=== PATIENT | female | born 1955 | race Caucasian/White ===

== ENCOUNTER 2016-05-01 08:29 | Outpatient (RCR) | payer OTHER ==
[~2016-05-01 08:29] MED LIST: OMEP20TA2 PO; PNT40TEC PO; SCR1T1 PO
== END 2016-05-27 13:40 | disposition home or self-care (01) ==
PROVIDERS: ATTEND Family Medicine
DX: M25.552 Pain in left hip (principal)

== ENCOUNTER 2016-08-02 03:01 | Emergency (ER) | payer OTHER ==
[~2016-08-02] VITALS: Ht 157.5 cm; Wt 61.2 kg
[2016-08-02] MEDS ORDERED: ASPIRIN 81 MG CHEW (CHILDREN'S ASA) ONE (03:14)
[2016-08-02] MEDS ORDERED: ASPIRIN 81 MG CHEW (CHILDREN'S ASA) PO ONE (03:30)
[2016-08-02 03:33] LABS: BASOPHILS % (AUTO) 0 % (0-10); EOSINOPHILS # (AUTO) 0.1 10^3/uL (0.0-0.3); EOSINOPHILS % (AUTO) 1 % (0-10); LYMPHOCYTES # (AUTO) 2.9 X 10^3 (1.0-4.0); LYMPHOCYTES % (AUTO) 38 % (12-44); MEAN CORPUSCULAR HEMOGLOBIN 29 PG (25-34); MEAN CORPUSCULAR HGB CONC 34 G/DL (32-36); MEAN CORPUSCULAR VOLUME 87 FL (80-99); MEAN PLATELET VOLUME 9.9 FL (7.4-10.4); MONOCYTES # (AUTO) 0.9 X 10^3 (0.0-1.0); MONOCYTES % (AUTO) 12 % (0-12); NEUTROPHILS # (AUTO) 3.7 X 10^3 (1.8-7.8); NEUTROPHILS % (AUTO) 49 % (42-75); PLATELET COUNT 250 10^3/uL (130-400); RED CELL DISTRIBUTION WIDTH 12.4 % (10.0-14.5); WHITE BLOOD COUNT 7.6 10^3/uL (4.3-11.0)
[2016-08-02 03:42] LABS: PROTHROMBIN TIME PATIENT 12.6 SEC (12.2-14.7)
[2016-08-02 03:53] LABS: ALANINE AMINOTRANSFERASE 18 U/L (0-55); ALBUMIN 4.1 G/DL (3.2-4.5); ANION GAP 11 MMOL/L (5-14); ASPARTATE AMINO TRANSFERASE 27 U/L (5-34); BILIRUBIN,TOTAL 0.4 MG/DL (0.1-1.0); BLOOD UREA NITROGEN 28 MG/DL (7-18); BUN/CREATININE RATIO 33; CALCIUM 9.4 MG/DL (8.5-10.1); CARBON DIOXIDE 23 MMOL/L (21-32); CHLORIDE 108 MMOL/L (98-107); CREATININE SERUM 0.85 MG/DL (0.60-1.30); GFR ESTIMATED > 60; GLUCOSE 99 MG/DL (70-105); MAGNESIUM 2.5 MG/DL (1.8-2.4); POTASSIUM 4.4 MMOL/L (3.6-5.0); SODIUM 142 MMOL/L (135-145); TOTAL PROTEIN 6.9 G/DL (6.4-8.2)
[2016-08-02 04:01] LABS: MYOGLOBIN SERUM 66.3 NG/ML (10.0-92.0)
--- NOTE | 2016-08-02 04:08 | ED Chest Pain ---
General Chief Complaint: Abdominal/GI Problems Stated Complaint: UPPER ABD PAIN,UPPER BACK PAIN Nursing Triage Note: Pt presents to ED with c/o abdominal pain that radiates up into chest, neck , and shoulders that began after she was bending over in the shower at approx 0200. Nursing Sepsis Screen: No Definite Risk Source: patient, old records Exam Limitations: no limitations (ETHAN CISNEROS MD) History of Present Illness Time seen by provider: 03:24 Initial Comments This 60-year-old woman presents to the emergency room with sudden onset of epigastric pain that radiated up through the chest into the neck, jaw, and ears. It occurred while she was bending over. She does have history of hiatal hernia but this is not a typical symptom for her. She has no known history of heart disease but does have a remote history of smoking and a family history of heart disease. She presently has some tenderness in the epigastrium, but the other symptoms have resolved. Onset was at about 02:00. She also had some pain that radiated into the upper back. She denies any shortness of air, nausea , vomiting, or lightheadedness. Review of her chart reveals an exercise stress test from November 2015 showing no ischemia. However, the study was compromised by significant baseline artifact at peak exercise. (ETHAN CISNEROS MD) Allergies and Home Medications Allergies Coded Allergies: No Known Drug Allergies (Unverified , 03/12/12) Home Medications Pantoprazole Sod 40 Mg Tab, 40 MG PO DAILY, (Reported) Sucralfate 1 Gm Tab, 1 GM PO ACHS for 14 Days, (Reported) Review of Systems Constitutional: no symptoms reported EENTM: No Symptoms Reported Respiratory: No Symptoms Reported Cardiovascular: See HPI Gastrointestinal: See HPI Genitourinary: No Symptoms Reported Musculoskeletal: no symptoms reported Skin: no symptoms reported Psychiatric/Neurological: No Symptoms Reported Endocrine: No Symptoms Reported (ETHAN CISNEROS MD) Past Qpzwjny-Kvcpbk-Rbacxu Hx Patient Social History Alcohol Use: Denies Use Recreational Drug Use: No Smoking Status: Never a Smoker 2nd Hand Smoke Exposure: No Recent Foreign Travel: No Contact w/Someone Who Travel: No Recent Infectious Disease Expo: No Recent Hopitalizations: No (ETHAN CISNEROS MD) Seasonal Allergies Seasonal Allergies: No (ETHAN CISNEROS MD) Surgeries HX Surgeries: No (ETHAN CISNEROS MD) Respiratory Hx Respiratory Disorders: No (ETHAN CISNEROS MD) Cardiovascular Hx Cardiac Disorders: No (ETHAN CISNEROS MD) Neurological Hx Neurological Disorders: No (ETHAN CISNEROS MD) Reproductive System : No (ETHAN CISNEROS MD) Genitourinary Hx Genitourinary Disorders: No (ETHAN CISNEROS MD) Gastrointestinal Hx Gastrointestinal Disorders: Yes Gastrointestinal Disorders: Gastroesophageal Reflux, Hiatal Hernia (ETHAN CISNEROS MD) Musculoskeletal Hx Musculoskeletal Disorders: No (ETHAN CISNEROS MD) Endocrine Hx Endocrine Disorders: No (ETHAN CISNEROS MD) HEENT HX ENT Disorders: No (ETHAN CISNEROS MD) Cancer Hx Cancer: No (ETHAN CISNEROS MD) Psychosocial Hx Psychiatric Problems: No (ETHAN CISNEROS MD) Integumentary HX Skin/Integumentary Disorder: No (ETHAN CISNEROS MD) Blood Transfusions Hx Blood Disorders: No Adverse Reaction to a Blood Tr: No (ETHAN CISNEROS MD) Family Medical History Significant Family History: Heart Disease, Diabetes, Stroke, Vascular Disease ( May Thurner syndrome) (ETHAN CISNEROS MD) Physical Exam Vital Signs Vital Sign - Last 12Hours 08/02/16 03:10 Temp 97.8 Pulse 79 Resp 18 B/P (MAP) 139/90 Pulse Ox 99 O2 Delivery Room Air (TITUS NEVAREZ MD) Vital Signs Capillary Refill : Less Than 3 Seconds (ETHAN CISNEROS MD) General Appearance: No Apparent Distress, WD/WN HEENT: PERRL/EOMI, Normal ENT Inspection Neck: Normal Inspection Respiratory: Chest Non Tender, Lungs Clear, Normal Breath Sounds, No Accessory Muscle Use, No Respiratory Distress Cardiovascular: Regular Rate, Rhythm, No Edema, No Murmur, Normal Peripheral Pulses Gastrointestinal: Normal Bowel Sounds, Soft, Tenderness (mild in the epigastrium) Extremity: Normal Inspection, No Pedal Edema Neurologic/Psychiatric: Alert, Oriented x3, No Motor/Sensory Deficits, Normal Mood/Affect, annealing operator II-XII Norm as Tested Skin: Normal Color, Warm/Dry (ETHAN CISNEROS MD) Progress/Results/Core Measures Results/Orders Lab Results Laboratory Tests Test 08/02/16 03:25 08/02/16 05:55 Range/Units White Blood Count 7.6 4.3-11.0 10^3/uL Red Blood Count 4.60 4.35-5.85 10^6/uL Hemoglobin 13.4 11.5-16.0 G/DL Hematocrit 40 35-52 % Mean Corpuscular Volume 87 80-99 FL Mean Corpuscular Hemoglobin 29 25-34 PG Mean Corpuscular Hemoglobin Concent 34 32-36 G/DL Red Cell Distribution Width 12.4 10.0-14.5 % Platelet Count 250 130-400 10^3/uL Mean Platelet Volume 9.9 7.4-10.4 FL Neutrophils (%) (Auto) 49 42-75 % Lymphocytes (%) (Auto) 38 12-44 % Monocytes (%) (Auto) 12 0-12 % Eosinophils (%) (Auto) 1 0-10 % Basophils (%) (Auto) 0 0-10 % Neutrophils # (Auto) 3.7 1.8-7.8 X 10^3 Lymphocytes # (Auto) 2.9 1.0-4.0 X 10^3 Monocytes # (Auto) 0.9 0.0-1.0 X 10^3 Eosinophils # (Auto) 0.1 0.0-0.3 10^3/uL Basophils # (Auto) 0.0 0.0-0.1 10^3/uL Prothrombin Time 12.6 12.2-14.7 SEC INR Comment 1.0 0.8-1.4 Activated Partial Thromboplast Time 26 24-35 SEC Sodium Level 142 135-145 MMOL/L Potassium Level 4.4 3.6-5.0 MMOL/L Chloride Level 108 H 98-107 MMOL/L Carbon Dioxide Level 23 21-32 MMOL/L Anion Gap 11 5-14 MMOL/L Blood Urea Nitrogen 28 H 7-18 MG/DL Creatinine 0.85 0.60-1.30 MG/DL Estimat Glomerular Filtration Rate > 60 BUN/Creatinine Ratio 33 Glucose Level 99 70-105 MG/DL Calcium Level 9.4 8.5-10.1 MG/DL Magnesium Level 2.5 H 1.8-2.4 MG/DL Total Bilirubin 0.4 0.1-1.0 MG/DL Aspartate Amino Transf (AST/SGOT) 27 5-34 U/L Alanine Aminotransferase (ALT/SGPT) 18 0-55 U/L Alkaline Phosphatase 62 40-136 U/L Myoglobin 66.3 10.0-92.0 NG/ML Troponin I < 0.30 < 0.30 <0.30 NG/ML Total Protein 6.9 6.4-8.2 G/DL Albumin 4.1 3.2-4.5 G/DL Lipase 30 8-78 U/L (TITUS NEVAREZ MD) Medications Given in ED Current Medications Medications Dose Ordered Sig/Emily Route Start Time Stop Time Status Last Admin Dose Admin Aspirin 243 mg ONCE ONCE PO 08/02/16 03:30 08/02/16 03:31 DC 08/02/16 03:15 243 MG (TITUS NEVAREZ MD) Vital Signs/I&O Vital Sign - Last 12Hours 08/02/16 08/02/16 03:10 03:12 Temp 97.8 Pulse 79 Resp 18 B/P (MAP) 139/90 Pulse Ox 99 98 O2 Delivery Room Air Room Air (TITUS NEVAREZ MD) Blood Pressure Mean: 106 Progress Note : Progress Note 0600: Assumed care of patient from Dr. Bach pending labs. 0650: Labs repeated and showed no acute findings. Patient without chest pain symptoms currently. I did discuss findings, concerns and plan with patient and family. She will follow-up with Dr. Michaels on Thursday for recheck and further evaluation as well as potentially repeat cardiac evaluation with stress test as indicated. She will also restart her medicines for her hiatal hernia and reflux. Discharged home with return precautions. Patient and family verbalize understanding instructions and agreement with plan. (TITUS NEVAREZ MD) ECG Initial ECG Impression Date: August 02, 2016 Initial ECG Impression Time: 03:24 Initial ECG Rate: 73 Initial ECG Rhythm: Normal Sinus Initial ECG Intervals: Normal Initial ECG Impression: Normal Comment Normal sinus rhythm with no ST elevation or depression. No abnormal intervals or axis deviation. Similar to EKG from 2016. (ETHAN CISNEROS MD) Diagnostic Imaging Diagonstic Imaging: Xray Plain Films/CT/US/NM/MRI: chest Comments Chest x-ray viewed by me and compared with prior. Report not yet available. No acute abnormalities appreciated. (ETHAN CISNEROS MD) Departure Impression Impression: Primary Impression: Atypical chest pain Additional Impression: Epigastric abdominal tenderness Qualified Codes: R10.816 - Epigastric abdominal tenderness Disposition: HOME, SELF-CARE Condition: Stable Departure-Patient Inst. Decision time for Depature: 06:53 (TITUS NEVAREZ MD) Referrals: JEANNA MICHAELS DO (PCP) Primary Care Physician Patient Instructions: Chest Pain (DC), Hiatal Hernia (DC) Add. Discharge Instructions: All discharge instructions reviewed with patient and/or family. Voiced understanding. Restart her medicines that he use for reflux. Follow-up with Dr. Michaels on Thursday for recheck and further evaluation including possible referral for stress test as indicated. Return for worse pain, fever, vomiting, weakness, breathing problems, sweating or other concerns as needed. Continue other home medications as previously prescribed. ETHAN CISNEROS MD August 02, 2016 04:08 TITUS NEVAREZ MD August 02, 2016 06:55
[2016-08-02 07:01] VITALS: BP 105/68
--- NOTE | 2016-08-02 08:17 | Diagnostic Imaging Report ---
INDICATION: Epigastric pain radiating to the chest. EXAMINATION: Chest, 08/02/2016. COMPARISON: 12/01/2015. FINDINGS: The cardiomediastinal silhouette is unremarkable. The pulmonary vasculature is within normal limits. The lungs and pleural spaces are clear. IMPRESSION: No evidence of an acute cardiopulmonary process. Dictated by: Dictated on workstation # [id number]
== END 2016-08-02 07:04 | disposition home or self-care (01) ==
LOC: EDUNIT# 03:01 → ER 03:04
DX: R07.89 Other chest pain (principal); R10.13 Epigastric pain; K44.9 Diaphragmatic hernia without obstruction or gangrene; Z87.891 Personal history of nicotine dependence
CPT/HCPCS: 36415; 71010; 80053; 83690; 83735; 83874; 84484; 85025; 85610; 85730; 93005; 93041

== ENCOUNTER → 2016-09-10 | Outpatient (CLI) | payer OTHER ==
--- NOTE | 2016-09-10 11:16 | Diagnostic Imaging Report ---
PROCEDURE: US abdomen complete. TECHNIQUE: Multiple real-time grayscale images were obtained over the abdomen in various projections. INDICATION: Abdominal pain. FINDINGS: The pancreas visualized portions appear unremarkable. The abdominal aorta is normal in caliber. The liver demonstrates no focal lesion. There is hepatopetal flow in the portal vein. The CBD is 4 mm in caliber. The gallbladder demonstrates no stones or wall thickening. There is no pericholecystic fluid. There is a 4-mm hyperechoic focus along the wall, nonmobile, is presumably a polyp. Sonographic Bush sign is reportedly negative. The spleen is 8.2 cm in length. The left kidney is 10.0 cm in length, and the right kidney is 10.8 cm in length. There is no hydronephrosis. The lower pole of the left kidney is partially obscured by bowel gas. There is an unremarkable appearance of the visualized portions of the IVC. No fluid collection is seen. IMPRESSION: A 4-mm echogenic focus in the gallbladder is probably a polyp. No stones or evidence of cholecystitis. Dictated by: Dictated on workstation # [id number]
== END ==
LOC: RAD 07:38
PROVIDERS: ATTEND Family Medicine
DX: R10.84 Generalized abdominal pain (principal)
CPT/HCPCS: 76700

== ENCOUNTER 2017-05-06 10:27 | Emergency (ER) | payer OTHER ==
[~2017-05-06] VITALS: Ht 157.5 cm; Wt 61.7 kg
[2017-05-06] MEDS ORDERED: NS IV 500 ML 500 ML IV ONE (10:39)
[2017-05-06] MEDS ORDERED: ASPIRIN 81 MG CHEW (CHILDREN'S ASA) PO ONE (10:45)
--- NOTE | 2017-05-06 10:47 | ED Chest Pain ---
General Stated Complaint: DIZZINESS,CP,DIAPHRAM PAIN,BACK PAIN Source: patient, other (coworker) Exam Limitations: no limitations History of Present Illness Date Seen by Provider: May 06, 2017 Time Seen by Provider: 10:38 Initial Comments Patient presents to ER by private conveyance with a coworker and chief complaint that she was at work and about 10:00, 30 minutes prior to arrival she began to experience a sharp 6 out of 10 substernal chest pain with some nerve pain radiation in her left arm. She had no nausea, chills, shortness of breath, sweats at the time. She has no prior history of coronary disease. Last year she had some odd chest pains that resulted and a stress echo done at [facility] that was normal. She quit smoking about 35 years ago. She does not drink alcohol or use recreational drugs. She does not have diabetes, hypothyroidism, high cholesterol or take any medications of any sort. At the time she was having the pain some nurses at her work insisted she take a 325 mg aspirin and come to the ER. The chest pain lasted approximately 5 minutes and resolve spontaneously. Allergies and Home Medications Allergies Coded Allergies: No Known Drug Allergies (Unverified , 03/12/12) Home Medications No Active Prescriptions or Reported Meds Review of Systems Constitutional: No chills, No diaphoresis, No fever EENTM: No Blurred Vision, No Double Vision Respiratory: Denies Cough, Denies Shortness of Air Cardiovascular: See HPI, Chest Pain, Denies Edema, Denies Irregular Heart Rate , Denies Lightheadedness, Denies Palpitations, Denies Syncope Gastrointestinal: Denies Abdomen Distended, Denies Abdominal Pain, Denies Constipated, Denies Diarrhea, Denies Nausea Genitourinary: Denies Burning, Denies Discharge Musculoskeletal: No back pain, No joint pain Skin: No pruritus, No rash Past Csjnbmp-Jfncra-Yqcmql Hx Patient Social History Alcohol Use: Denies Use Recreational Drug Use: No Smoking Status: Former Smoker Type Used: Cigarettes (crit 35 years ago) 2nd Hand Smoke Exposure: No Recent Foreign Travel: No Contact w/Someone Who Travel: No Recent Hopitalizations: No Seasonal Allergies Seasonal Allergies: No Gastrointestinal Gastrointestinal Disorders: Gastroesophageal Reflux, Hiatal Hernia Blood Transfusions Adverse Reaction to a Blood Tr: No Family Medical History Significant Family History: Heart Disease, Diabetes, Stroke, Vascular Disease Physical Exam Vital Signs Vital Signs - First Documented 05/06/17 10:27 Temp 98.0 Pulse 78 Resp 18 B/P (MAP) 157/88 (111) Pulse Ox 99 Capillary Refill : General Appearance: No Apparent Distress, WD/WN HEENT: PERRL/EOMI, Normal ENT Inspection, Pharynx Normal Neck: Full Range of Motion, Non Tender, Supple Respiratory: Chest Non Tender, Lungs Clear, Normal Breath Sounds, No Accessory Muscle Use, No Respiratory Distress Cardiovascular: Regular Rate, Rhythm, No JVD, Normal Peripheral Pulses Gastrointestinal: Normal Bowel Sounds, Non Tender, Soft Extremity: Normal Capillary Refill, No Pedal Edema Neurologic/Psychiatric: Alert, Oriented x3 Skin: Normal Color, Warm/Dry Progress/Results/Core Measures Results/Orders Lab Results Laboratory Tests Test 05/06/17 10:40 05/06/17 12:40 Range/Units White Blood Count 6.8 4.3-11.0 10^3/uL Red Blood Count 4.55 4.35-5.85 10^6/uL Hemoglobin 13.5 11.5-16.0 G/DL Hematocrit 39 35-52 % Mean Corpuscular Volume 85 80-99 FL Mean Corpuscular Hemoglobin 30 25-34 PG Mean Corpuscular Hemoglobin Concent 35 32-36 G/DL Red Cell Distribution Width 12.3 10.0-14.5 % Platelet Count 255 130-400 10^3/uL Mean Platelet Volume 9.7 7.4-10.4 FL Neutrophils (%) (Auto) 50 42-75 % Lymphocytes (%) (Auto) 40 12-44 % Monocytes (%) (Auto) 9 0-12 % Eosinophils (%) (Auto) 1 0-10 % Basophils (%) (Auto) 0 0-10 % Neutrophils # (Auto) 3.4 1.8-7.8 X 10^3 Lymphocytes # (Auto) 2.7 1.0-4.0 X 10^3 Monocytes # (Auto) 0.6 0.0-1.0 X 10^3 Eosinophils # (Auto) 0.1 0.0-0.3 10^3/uL Basophils # (Auto) 0.0 0.0-0.1 10^3/uL Prothrombin Time 12.6 12.2-14.7 SEC INR Comment 0.9 0.8-1.4 Activated Partial Thromboplast Time 26 24-35 SEC Sodium Level 140 135-145 MMOL/L Potassium Level 3.8 3.6-5.0 MMOL/L Chloride Level 107 98-107 MMOL/L Carbon Dioxide Level 22 21-32 MMOL/L Anion Gap 11 5-14 MMOL/L Blood Urea Nitrogen 16 7-18 MG/DL Creatinine 0.86 0.60-1.30 MG/DL Estimat Glomerular Filtration Rate > 60 BUN/Creatinine Ratio 19 Glucose Level 113 H 70-105 MG/DL Calcium Level 8.7 8.5-10.1 MG/DL Magnesium Level 1.8 1.8-2.4 MG/DL Total Bilirubin 0.5 0.1-1.0 MG/DL Aspartate Amino Transf (AST/SGOT) 18 5-34 U/L Alanine Aminotransferase (ALT/SGPT) 16 0-55 U/L Alkaline Phosphatase 55 40-136 U/L Myoglobin 34.4 10.0-92.0 NG/ML Troponin I < 0.30 < 0.30 <0.30 NG/ML Total Protein 6.7 6.4-8.2 GM/DL Albumin 4.0 3.2-4.5 GM/DL Lipase 31 8-78 U/L My Orders Orders - ARIEL,KANE J Ekg Tracing (05/06/17 10:30) Cbc With Automated Diff (05/06/17 10:39) Magnesium (05/06/17 10:39) Cardiac Profile 1 (05/06/17 10:39) Comprehensive Metabolic Panel (05/06/17 10:39) Myoglobin Serum (05/06/17 10:39) Protime With Inr (05/06/17 10:39) Partial Thromboplastin Time (05/06/17 10:39) O2 (05/06/17 10:39) Monitor-Rhythm Ecg Trace Only (05/06/17 10:39) Lipid Panel (05/07/17 06:00) Aspirin Chewable Tablet (Baby Aspirin Ch (05/06/17 10:45) Saline Lock/Iv-Start (05/06/17 10:39) Lipase (05/06/17 10:39) Chest Pa/Lat (2 View) (05/06/17 10:39) Ns Iv 500 Ml (Sodium Chloride 0.9%) (05/06/17 10:39) Ekg Tracing (05/06/17 12:30) Troponin I (05/06/17 12:30) Lidocaine 2% Viscous 15 Ml (Xylocaine Vi (05/06/17 13:00) Famotidine Tablet (Pepcid Tablet) (05/06/17 12:48) Antacid Suspension (Mylanta Suspension (05/06/17 13:00) Medications Given in ED Current Medications Medications Dose Ordered Sig/Emily Route Start Time Stop Time Status Last Admin Dose Admin Al Hydrox/Mg Hydrox/Simethicone 30 ml ONCE ONCE PO 05/06/17 13:00 05/06/17 13:01 DC 05/06/17 12:58 30 ML Aspirin 81 mg ONCE ONCE PO 05/06/17 10:45 05/06/17 10:46 DC 05/06/17 11:11 81 MG Lidocaine HCl 15 ml ONCE ONCE PO 05/06/17 13:00 05/06/17 13:01 DC 05/06/17 12:58 15 ML Sodium Chloride 500 ml @ 0 mls/hr Q0M ONCE IV 05/06/17 10:39 05/06/17 10:41 DC 05/06/17 11:12 1,000 MLS/HR Vital Signs/I&O Vital Sign - Last 12Hours 05/06/17 10:27 Temp 98.0 Pulse 78 Resp 18 B/P (MAP) 157/88 (111) Pulse Ox 99 Progress Note : Time: 11:46 Progress Note ED ACS score is 13 points which is low risk and recommends a two-hour troponin rule out. ECG Initial ECG Impression Date: May 06, 2017 Initial ECG Impression Time: 10:34 Initial ECG Rate: 77 Initial ECG Rhythm: Normal Sinus Initial ECG Intervals: Normal Initial ECG Impression: Normal Initial ECG Comparisson: Unchanged Comment No T-wave elevation or depression. EKG : EKG Time: 12:32 Rate: 71 Rhythm: Normal Sinus Intervals: Normal ECG Comparisson: Unchanged ECG Impression: Normal, Nonspecific Changes Comment Unchanged without significant ST elevation or depression. Diagnostic Imaging Diagonstic Imaging: Xray Plain Films/CT/US/NM/MRI: chest (2v) Comments No acute cardiopulmonary processes noted. [facility] [place], [place] NAME: JACEY PORRASTHOMAS Cifuentes [facility] REC#: [id number] PT STATUS: REG ER : 1955 PHYSICIAN: KANE GEORGE MD ADMIT DATE: 05/06/17/ER Draft Date of Exam:05/06/17 CHEST PA/LAT (2 VIEW) INDICATION: Chest pain and dizziness. Comparison with 08/02/2016. FINDINGS: PA and lateral chest show the lungs to be well-aerated. There are no infiltrates. Heart is not enlarged. There is no hilar adenopathy. No pulmonary edema. No pneumothorax or pleural effusion. No bony abnormalities. IMPRESSION: Normal PA and lateral chest. Dictated on workstation # [id number] Dict: 05/06/17 1124 Trans: 05/06/17 1127 [facility] [id number] Interpreted by: TROY DUBOIS MD Electronically signed by: Reviewed: Reviewed by Me Consults Consults : Consulting Physician: Sincere RIDDLE MD Consults Notes Discussed case lab EKG and imaging with Dr. Mckeon. He agrees with a delta T at 2 hours and follow-up in the clinic. Departure Impression Impression: Primary Impression: Chest pain Qualified Codes: R07.9 - Chest pain, unspecified Disposition: 01 HOME, SELF-CARE Condition: Stable Departure-Patient Inst. Decision time for Depature: 13:45 Referrals: JEANNA MCKEON DO (PCP/Family) Primary Care Physician Patient Instructions: Chest Pain (DC) Add. Discharge Instructions: Your chest pain today does not seem to be caused by an acute myocardial infarction or heart attack. However it is still recommended that you get your heart evaluated for possible early heart disease with the upholstery trimmer by calling Dr. Riddle at his office today at [phone] and requests an appointment in the next 2-3 days. If you begin to have more chest pain please return to the ER immediately. You may also follow-up with your primary care physician for evaluation and management of other noncardiac possible causes of your chest pain. It would not be unwise to start taking an 81mg aspirin daily for primary prevention of heart disease. Scripts No Active Prescriptions or Reported Meds Work/School Note: Work Release Form Date Seen in the Emergency Department: May 06, 2017 Return to Work: May 07, 2017 Restrictions: No Restrictions Copy Copies To 1: JEANNA MCKEON DO Copies To 2: Sincere RIDDLE MD, TITUS J May 06, 2017 10:46
[2017-05-06 10:52] LABS: BASOPHILS % (AUTO) 0 % (0-10); EOSINOPHILS # (AUTO) 0.1 10^3/uL (0.0-0.3); EOSINOPHILS % (AUTO) 1 % (0-10); HEMATOCRIT 39 % (35-52); HEMOGLOBIN 13.5 G/DL (11.5-16.0); LYMPHOCYTES # (AUTO) 2.7 X 10^3 (1.0-4.0); LYMPHOCYTES % (AUTO) 40 % (12-44); MEAN CORPUSCULAR HEMOGLOBIN 30 PG (25-34); MEAN CORPUSCULAR HGB CONC 35 G/DL (32-36); MEAN CORPUSCULAR VOLUME 85 FL (80-99); MEAN PLATELET VOLUME 9.7 FL (7.4-10.4); MONOCYTES # (AUTO) 0.6 X 10^3 (0.0-1.0); MONOCYTES % (AUTO) 9 % (0-12); NEUTROPHILS # (AUTO) 3.4 X 10^3 (1.8-7.8); NEUTROPHILS % (AUTO) 50 % (42-75); PLATELET COUNT 255 10^3/uL (130-400); RED BLOOD COUNT 4.55 10^6/uL (4.35-5.85); RED CELL DISTRIBUTION WIDTH 12.3 % (10.0-14.5); WHITE BLOOD COUNT 6.8 10^3/uL (4.3-11.0)
[2017-05-06 11:12] LABS: INR 0.9 (0.8-1.4); PROTHROMBIN TIME PATIENT 12.6 SEC (12.2-14.7)
[2017-05-06 11:13] LABS: ALANINE AMINOTRANSFERASE 16 U/L (0-55); ALKALINE PHOSPHATASE 55 U/L (40-136); BILIRUBIN,TOTAL 0.5 MG/DL (0.1-1.0); BUN/CREATININE RATIO 19; CALCIUM 8.7 MG/DL (8.5-10.1); CARBON DIOXIDE 22 MMOL/L (21-32); CHLORIDE 107 MMOL/L (98-107); CREATININE SERUM 0.86 MG/DL (0.60-1.30); GFR ESTIMATED > 60; GLUCOSE 113 MG/DL (70-105); LIPASE 31 U/L (8-78); MAGNESIUM 1.8 MG/DL (1.8-2.4); POTASSIUM 3.8 MMOL/L (3.6-5.0); SODIUM 140 MMOL/L (135-145); TOTAL PROTEIN 6.7 GM/DL (6.4-8.2)
[2017-05-06 11:21] LABS: MYOGLOBIN SERUM 34.4 NG/ML (10.0-92.0)
--- NOTE | 2017-05-06 11:28 | Diagnostic Imaging Report ---
INDICATION: Chest pain and dizziness. Comparison with 08/02/2016. FINDINGS: PA and lateral chest show the lungs to be well-aerated. There are no infiltrates. Heart is not enlarged. There is no hilar adenopathy. No pulmonary edema. No pneumothorax or pleural effusion. No bony abnormalities. IMPRESSION: Normal PA and lateral chest. Dictated by: Dictated on workstation # [id number]
--- OUTSIDE RECORDS SUMMARY | 2017-05-06 11:55 | XMS REPORT | Continuity of Care Document ---
Author Author [facility] Organization [facility] Address Unknown Phone Unavailable Allergies Active Description Code Type Severity Reaction Onset Reported/Identified Relationship to Patient Clinical Status Yes No Known Drug Allergies [id number] Drug Allergy Unknown N/A 03/12/2012 Medications There is no data. Problems Date Dx Coded Attending Type Code Diagnosis Diagnosed By 03/12/2012 Ot 455.0 INT HEMORRHOID W/O COMPL 03/12/2012 Ot 455.3 EXT HEMORRHOID W/O COMPL 03/12/2012 Ot 530.11 REFLUX ESOPHAGITIS 03/12/2012 Ot 535.50 UNSP GASTRITIS GASTRODUODENITIS W/O ME 03/12/2012 Ot 553.3 DIAPHRAGMATIC HERNIA 03/12/2012 Ot 562.10 DIVERTICULOSIS COLON (W/O MENT OF HEMORR 03/12/2012 Ot V76.51 SCREEN MAL NEOP-COLON 11/23/2014 Ot V72.84 12/08/2014 TITUS FAN DC Ot 721.0 12/08/2014 TITUS FAN DC Ot 721.2 12/08/2014 TITUS FAN DC Ot 721.3 12/08/2014 TITUS FAN DC Ot 737.30 01/03/2015 TITUS FAN DC Ot 721.0 01/03/2015 TITUS FAN DC Ot 721.2 01/03/2015 TITUS FAN DC Ot 721.3 01/03/2015 TITUS FAN DC Ot 737.30 01/03/2015 Ot V72.84 01/03/2015 TITUS FAN DC Ot 721.0 01/03/2015 TITUS FAN DC Ot 721.2 01/03/2015 TITUS FAN DC Ot 721.3 01/03/2015 TITUS FAN DC Ot 737.30 04/30/2015 TITUS FAN DC Ot 721.0 04/30/2015 MENG DC, TITUS J Ot 721.2 04/30/2015 MENG DC, TITUS J Ot 721.3 04/30/2015 MENG DC, TITUS J Ot 737.30 05/02/2015 MENG DC, TITUS J Ot 721.0 05/02/2015 MENG DC, TITUS J Ot 721.2 05/02/2015 MENG DC, TITUS J Ot 721.3 05/02/2015 MENG DC, TITUS J Ot 737.30 05/29/2015 Ot V72.84 05/29/2015 MENG DC, TITUS J Ot 721.0 05/29/2015 MENG DC, TITUS J Ot 721.2 05/29/2015 MENG DC, TITUS J Ot 721.3 05/29/2015 MENG DC, TITUS J Ot 737.30 06/12/2015 MENG DC, TITUS J Ot 721.0 06/12/2015 MENG DC, TITUS J Ot 721.2 06/12/2015 MENG DC, TITUS J Ot 721.3 06/12/2015 MENG DC, TITUS J Ot 737.30 12/11/2015 Ot V72.84 EXAM PRE- OPERATIVE NOS 12/11/2015 MENG DC, TITUS J Ot 721.0 CERVICAL SPONDYLOSIS 12/11/2015 MENG DC, TITUS J Ot 721.2 THORACIC SPONDYLOSIS 12/11/2015 MENG DC, TITUS J Ot 721.3 LUMBOSACRAL SPONDYLOSIS 12/11/2015 MENG DC, TITUS J Ot 737.30 IDIOPATHIC SCOLIOSIS 12/12/2015 HARLEY PIERCE SKIVER BOX TOE Ot R06.09 OTHER FORMS OF DYSPNEA 12/12/2015 HARLEY PIERCE SKIVER BOX TOE Ot R07.9 CHEST PAIN, UNSPECIFIED 12/12/2015 HARLEY PIERCE SKIVER BOX TOE Ot R55 SYNCOPE AND COLLAPSE 12/26/2015 HARLEY PIERCE SKIVER BOX TOE Ot R06.09 OTHER FORMS OF DYSPNEA 12/26/2015 HARLEY PIERCE SKIVER BOX TOE Ot R07.9 CHEST PAIN, UNSPECIFIED 12/26/2015 HARLEY PIERCE SKIVER BOX TOE Ot R55 SYNCOPE AND COLLAPSE 01/16/2016 HARLEY PIERCE SKIVER BOX TOE Ot R06.00 DYSPNEA, UNSPECIFIED 01/16/2016 HARLEY PIERCE SKIVER BOX TOE Ot R07.9 CHEST PAIN, UNSPECIFIED 01/22/2016 HARLEY PIERCE SKIVER BOX TOE Ot R06.00 DYSPNEA, UNSPECIFIED 01/22/2016 HARLEY PIERCE SKIVER BOX TOE Ot R07.9 CHEST PAIN, UNSPECIFIED 01/22/2016 Ot V72.84 EXAM PRE- OPERATIVE NOS 01/22/2016 MENG DC, TITUS J Ot 721.0 CERVICAL SPONDYLOSIS 01/22/2016 MENG DC, TITUS J Ot 721.2 THORACIC SPONDYLOSIS 01/22/2016 MENG DC, TITUS J Ot 721.3 LUMBOSACRAL SPONDYLOSIS 01/22/2016 MENG DC, TITUS J Ot 737.30 IDIOPATHIC SCOLIOSIS 01/22/2016 HARLEY PIERCE SKIVER BOX TOE Ot R06.09 OTHER FORMS OF DYSPNEA 01/22/2016 HARLEY PIERCE SKIVER BOX TOE Ot R07.9 CHEST PAIN, UNSPECIFIED 01/22/2016 HARLEY PIERCE SKIVER BOX TOE Ot R55 SYNCOPE AND COLLAPSE 01/22/2016 HARLEY PIERCE SKIVER BOX TOE Ot R06.00 DYSPNEA, UNSPECIFIED 01/22/2016 HARLEY PIERCE SKIVER BOX TOE Ot R07.9 CHEST PAIN, UNSPECIFIED 01/22/2016 Ot V72.84 EXAM PRE- OPERATIVE NOS 01/22/2016 MENG DC, TITUS J Ot 721.0 CERVICAL SPONDYLOSIS 01/22/2016 MENG DC, TITUS J Ot 721.2 THORACIC SPONDYLOSIS 01/22/2016 MENG DC, TITUS J Ot 721.3 LUMBOSACRAL SPONDYLOSIS 01/22/2016 MENG DC, TITUS J Ot 737.30 IDIOPATHIC SCOLIOSIS 01/22/2016 HARLEY PIERCE SKIVER BOX TOE Ot R06.09 OTHER FORMS OF DYSPNEA 01/22/2016 HARLEY PIERCE SKIVER BOX TOE Ot R07.9 CHEST PAIN, UNSPECIFIED 01/22/2016 HARLEY PIERCE SKIVER BOX TOE Ot R55 SYNCOPE AND COLLAPSE 01/22/2016 HARLEY PIERCE SKIVER BOX TOE Ot R06.00 DYSPNEA, UNSPECIFIED 01/22/2016 HARLEY PIERCE SKIVER BOX TOE Ot R07.9 CHEST PAIN, UNSPECIFIED 01/31/2016 Ot V72.84 EXAM PRE- OPERATIVE NOS 01/31/2016 MENG TITUS GALINDO Ot 721.0 CERVICAL SPONDYLOSIS 01/31/2016 CALIENTE TITUS GALINDO Ot 721.2 THORACIC SPONDYLOSIS 01/31/2016 CALIENTE TITUS GALINDO Ot 721.3 LUMBOSACRAL SPONDYLOSIS 01/31/2016 CALIENTE TITUS GALINDO Ot 737.30 IDIOPATHIC SCOLIOSIS 01/31/2016 HARLEY PIERCE SKIVER BOX TOE Ot R06.09 OTHER FORMS OF DYSPNEA 01/31/2016 HARLEY PIERCE SKIVER BOX TOE Ot R07.9 CHEST PAIN, UNSPECIFIED 01/31/2016 HARLEY PIERCE SKIVER BOX TOE Ot R55 SYNCOPE AND COLLAPSE 01/31/2016 HARLEY PIERCE APRN Ot R06.00 DYSPNEA, UNSPECIFIED 01/31/2016 HARLEY PIERCE APRN Ot R07.9 CHEST PAIN, UNSPECIFIED 02/01/2016 ORENDER DO, JEANNA S Ot R22.42 LOCALIZED SWELLING, MASS AND LUMP, LEFT 02/04/2016 ORENDER DO, JEANNA S Ot R22.42 LOCALIZED SWELLING, MASS AND LUMP, LEFT 02/13/2016 Ot V72.84 EXAM PRE- OPERATIVE NOS 02/13/2016 CALIENTE TITUS GALINDO Ot 721.0 CERVICAL SPONDYLOSIS 02/13/2016 TITUS AFN DC Ot 721.2 THORACIC SPONDYLOSIS 02/13/2016 CALIENTE TITUS GALINDO Ot 721.3 LUMBOSACRAL SPONDYLOSIS 02/13/2016 CALIENTE TITUS GALINDO Ot 737.30 IDIOPATHIC SCOLIOSIS 02/13/2016 HARLEY PIERCE SKIVER BOX TOE Ot R06.09 OTHER FORMS OF DYSPNEA 02/13/2016 HARLEY PIERCE SKIVER BOX TOE Ot R07.9 CHEST PAIN, UNSPECIFIED 02/13/2016 HARLEY PIERCE SKIVER BOX TOE Ot R55 SYNCOPE AND COLLAPSE 02/13/2016 HARLEY PIERCE SKIVER BOX TOE Ot R06.00 DYSPNEA, UNSPECIFIED 02/13/2016 HARLEY PIERCE SKIVER BOX TOE Ot R07.9 CHEST PAIN, UNSPECIFIED 02/13/2016 ORENDER DO, JEANNA S Ot R22.42 LOCALIZED SWELLING, MASS AND LUMP, LEFT 02/13/2016 HARLEY PIERCE SKIVER BOX TOE Ot R06.00 DYSPNEA, UNSPECIFIED 02/13/2016 HARLEY PIERCE Kelly MATTHEWN Ot R07.9 CHEST PAIN, UNSPECIFIED 02/13/2016 Ot V72.84 EXAM PRE- OPERATIVE NOS 02/13/2016 MENG GALINDO, TITUS Cifuentes Ot 721.0 CERVICAL SPONDYLOSIS 02/13/2016 TITUS FAN DC Ot 721.2 THORACIC SPONDYLOSIS 02/13/2016 TITUS FAN DC Ot 721.3 LUMBOSACRAL SPONDYLOSIS 02/13/2016 TITUS FAN DC Ot 737.30 IDIOPATHIC SCOLIOSIS 02/13/2016 HARLEY PIERCE Kelly MATTHEWN Ot R06.09 OTHER FORMS OF DYSPNEA 02/13/2016 HARLEY PIERCE Kelly SKIVER BOX TOE Ot R07.9 CHEST PAIN, UNSPECIFIED 02/13/2016 SANDRA PIERCEIngrid Mendoza APRN Ot R55 SYNCOPE AND COLLAPSE 02/13/2016 HARLEY PIERCE Kelly MATTHEWN Ot R06.00 DYSPNEA, UNSPECIFIED 02/13/2016 HARLEY PIERCE Kelly MATTHEWN Ot R07.9 CHEST PAIN, UNSPECIFIED 02/13/2016 ORENDER DO, JEANNA S Ot R22.42 LOCALIZED SWELLING, MASS AND LUMP, LEFT 02/27/2016 ORENDER DO, JEANNA S Ot R22.42 LOCALIZED SWELLING, MASS AND LUMP, LEFT 02/29/2016 ORENDER DO, JEANNA S Ot R22.42 LOCALIZED SWELLING, MASS AND LUMP, LEFT 04/08/2016 ORENDER DO, JEANNA S Ot M25.552 PAIN IN LEFT HIP 05/01/2016 ORENDER DO, JEANNA S Ot M25.552 PAIN IN LEFT HIP 05/27/2016 ORENDER DO, JEANNA S Ot M25.552 PAIN IN LEFT HIP 08/02/2016 ROQUE BAIRD, TITUS Neri Ot K44.9 DIAPHRAGMATIC HERNIA WITHOUT OBSTRUCTION 08/02/2016 TITUS NEVAREZ MD Ot R07.89 OTHER CHEST PAIN 08/02/2016 TITUS NEVAREZ MD Ot R10.10 UPPER ABDOMINAL PAIN, UNSPECIFIED 08/02/2016 TITUS NEVAREZ MD Ot R10.13 EPIGASTRIC PAIN 08/02/2016 TITUS NEVAREZ MD Ot Z87.891 PERSONAL HISTORY OF NICOTINE DEPENDENCE 08/05/2016 TITUS NEVAREZ MD Ot K44.9 DIAPHRAGMATIC HERNIA WITHOUT OBSTRUCTION 08/05/2016 TITUS NEVAREZ MD Ot R07.89 OTHER CHEST PAIN 08/05/2016 TITUS NEVAREZ MD Ot R10.10 UPPER ABDOMINAL PAIN, UNSPECIFIED 08/05/2016 TITUS NEVAREZ MD Ot R10.13 EPIGASTRIC PAIN 08/05/2016 TITUS NEVAREZ MD, Ot Z87.891 PERSONAL HISTORY OF NICOTINE DEPENDENCE 10/02/2016 Ot V72.84 EXAM PRE- OPERATIVE NOS 10/02/2016 TITUS FAN DC Ot 721.0 CERVICAL SPONDYLOSIS 10/02/2016 TITUS FAN DC Ot 721.2 THORACIC SPONDYLOSIS 10/02/2016 TITUS FAN DC Ot 721.3 LUMBOSACRAL SPONDYLOSIS 10/02/2016 TITUS FAN DC Ot 737.30 IDIOPATHIC SCOLIOSIS 10/02/2016 HARLEY PIERCE APRN Ot R06.09 OTHER FORMS OF DYSPNEA 10/02/2016 HARLEY PIERCE SKIVER BOX TOE Ot R07.9 CHEST PAIN, UNSPECIFIED 10/02/2016 HARLEY PIERCE SKIVER BOX TOE Ot R55 SYNCOPE AND COLLAPSE 10/02/2016 HARLEY PIERCE APRN Ot R06.00 DYSPNEA, UNSPECIFIED 10/02/2016 HARLEY PIERCE SKIVER BOX TOE Ot R07.9 CHEST PAIN, UNSPECIFIED 10/02/2016 JEANNA MCKEON DO S Ot R22.42 LOCALIZED SWELLING, MASS AND LUMP, LEFT 10/02/2016 THOMASNDER DO JEANNA S Ot R10.84 GENERALIZED ABDOMINAL PAIN 10/08/2016 THOMASNDER , JEANNA S Ot R10.84 GENERALIZED ABDOMINAL PAIN 10/20/2016 THOMASNDER DO, JEANNA S Ot R10.84 GENERALIZED ABDOMINAL PAIN Procedures There is no data. Results Test Result Range Complete blood count (CBC) with automated white blood cell (WBC) differential - 12/11/15 12:43 Blood leukocytes automated count (number/volume) 7.7 10*3/uL 4.3-11.0 Blood erythrocytes automated count (number/volume) 4.69 10*6/uL 4.35-5.85 Venous blood hemoglobin measurement (mass/volume) 14.0 g/dL 11.5-16.0 Blood hematocrit (volume fraction) 40 % 35-52 Automated erythrocyte mean corpuscular volume 86 [foz_us] 80-99 Automated erythrocyte mean corpuscular hemoglobin (mass per erythrocyte) 30 pg 25-34 Automated erythrocyte mean corpuscular hemoglobin concentration measurement ( mass/volume) 35 g/dL 32-36 Automated erythrocyte distribution width ratio 12.2 % 10.0-14.5 Automated blood platelet count (count/volume) 260 10*3/uL 130-400 Automated blood platelet mean volume measurement 9.5 [foz_us] 7.4-10.4 Automated blood neutrophils/100 leukocytes 73 % 42-75 Automated blood lymphocytes/100 leukocytes 19 % 12-44 Blood monocytes/100 leukocytes 8 % 0-12 Automated blood eosinophils/100 leukocytes 0 % 0-10 Automated blood basophils/100 leukocytes 0 % 0-10 Blood neutrophils automated count (number/volume) 5.7 10*3 1.8-7.8 Blood lymphocytes automated count (number/volume) 1.4 10*3 1.0-4.0 Blood monocytes automated count (number/volume) 0.6 10*3 0.0-1.0 Automated eosinophil count 0.0 10*3/uL 0.0-0.3 Automated blood basophil count (count/volume) 0.0 10*3/uL 0.0-0.1 Comprehensive metabolic panel - 12/11/15 12:43 Serum or plasma sodium measurement (moles/volume) 139 mmol/L 135-145 Serum or plasma potassium measurement (moles/volume) 4.2 mmol/L 3.6-5.0 Serum or plasma chloride measurement (moles/volume) 107 mmol/L 98-107 Carbon dioxide 24 mmol/L 21-32 Serum or plasma anion gap determination (moles/volume) 8 mmol/L 5-14 Serum or plasma urea nitrogen measurement (mass/volume) 18 mg/dL 7-18 Serum or plasma creatinine measurement (mass/volume) 0.80 mg/dL 0.60-1.30 Serum or plasma urea nitrogen/creatinine mass ratio 23 NRG Serum or plasma creatinine measurement with calculation of estimated glomerular filtration rate > NRG Serum or plasma glucose measurement (mass/volume) 96 mg/dL 70-105 Serum or plasma calcium measurement (mass/volume) 9.1 mg/dL 8.5-10.1 Serum or plasma total bilirubin measurement (mass/volume) 0.4 mg/dL 0.1-1.0 Serum or plasma alkaline phosphatase measurement (enzymatic activity/volume) 55 U/L 40-136 Serum or plasma aspartate aminotransferase measurement (enzymatic activity/ volume) 20 U/L 5-34 Serum or plasma alanine aminotransferase measurement (enzymatic activity/volume ) 17 U/L 0-55 Serum or plasma protein measurement (mass/volume) 6.7 g/dL 6.4-8.2 Serum or plasma albumin measurement (mass/volume) 4.2 g/dL 3.2-4.5 Fibrin D-dimer FEU measurement in platelet poor plasma (mass/volume) - 12:43 Fibrin D-dimer FEU measurement in platelet poor plasma (mass/volume) 0.38 ug/mL 0.00-0.49 Serum or plasma troponin i.cardiac measurement (mass/volume) - 12/11/15 12:43 Serum or plasma troponin i.cardiac measurement (mass/volume) < ng/ mL <0.30 THYROID STIMULATING HORMONE - 12/11/15 12:43 THYROID STIMULATING HORMONE 3.35 u[iU]/mL 0.35-4.94 Serum or plasma thyroxine (T4) free measurement (mass/volume) - 12/11/15 12:43 Serum or plasma thyroxine (T4) free measurement (mass/volume) 0.80 ng/dL 0.70-1.48 Complete blood count (CBC) with automated white blood cell (WBC) differential - 08/02/16 03:25 Blood leukocytes automated count (number/volume) 7.6 10*3/uL 4.3-11.0 Blood erythrocytes automated count (number/volume) 4.60 10*6/uL 4.35-5.85 Venous blood hemoglobin measurement (mass/volume) 13.4 g/dL 11.5-16.0 Blood hematocrit (volume fraction) 40 % 35-52 Automated erythrocyte mean corpuscular volume 87 [foz_us] 80-99 Automated erythrocyte mean corpuscular hemoglobin (mass per erythrocyte) 29 pg 25-34 Automated erythrocyte mean corpuscular hemoglobin concentration measurement ( mass/volume) 34 g/dL 32-36 Automated erythrocyte distribution width ratio 12.4 % 10.0-14.5 Automated blood platelet count (count/volume) 250 10*3/uL 130-400 Automated blood platelet mean volume measurement 9.9 [foz_us] 7.4-10.4 Automated blood neutrophils/100 leukocytes 49 % 42-75 Automated blood lymphocytes/100 leukocytes 38 % 12-44 Blood monocytes/100 leukocytes 12 % 0-12 Automated blood eosinophils/100 leukocytes 1 % 0-10 Automated blood basophils/100 leukocytes 0 % 0-10 Blood neutrophils automated count (number/volume) 3.7 10*3 1.8-7.8 Blood lymphocytes automated count (number/volume) 2.9 10*3 1.0-4.0 Blood monocytes automated count (number/volume) 0.9 10*3 0.0-1.0 Automated eosinophil count 0.1 10*3/uL 0.0-0.3 Automated blood basophil count (count/volume) 0.0 10*3/uL 0.0-0.1 PT panel in platelet poor plasma by coagulation assay - 08/02/16 03:25 Prothrombin time (PT) in platelet poor plasma by coagulation assay 12.6 s 12.2-14.7 INR in platelet poor plasma or blood by coagulation assay 1.0 0.8-1.4 Activated partial thromboplastin time (aPTT) in platelet poor plasma bycoagulation assay - 08/02/16 03:25 Activated partial thromboplastin time (aPTT) in platelet poor plasma bycoagulation assay 26 s 24-35 Comprehensive metabolic panel - 08/02/16 03:25 Serum or plasma sodium measurement (moles/volume) 142 mmol/L 135-145 Serum or plasma potassium measurement (moles/volume) 4.4 mmol/L 3.6-5.0 Serum or plasma chloride measurement (moles/volume) 108 mmol/L 98-107 Carbon dioxide 23 mmol/L 21-32 Serum or plasma anion gap determination (moles/volume) 11 mmol/L 5-14 Serum or plasma urea nitrogen measurement (mass/volume) 28 mg/dL 7-18 Serum or plasma creatinine measurement (mass/volume) 0.85 mg/dL 0.60-1.30 Serum or plasma urea nitrogen/creatinine mass ratio 33 NRG Serum or plasma creatinine measurement with calculation of estimated glomerular filtration rate > NRG Serum or plasma glucose measurement (mass/volume) 99 mg/dL 70-105 Serum or plasma calcium measurement (mass/volume) 9.4 mg/dL 8.5-10.1 Serum or plasma total bilirubin measurement (mass/volume) 0.4 mg/dL 0.1-1.0 Serum or plasma alkaline phosphatase measurement (enzymatic activity/volume) 62 U/L 40-136 Serum or plasma aspartate aminotransferase measurement (enzymatic activity/ volume) 27 U/L 5-34 Serum or plasma alanine aminotransferase measurement (enzymatic activity/volume ) 18 U/L 0-55 Serum or plasma protein measurement (mass/volume) 6.9 g/dL 6.4-8.2 Serum or plasma albumin measurement (mass/volume) 4.1 g/dL 3.2-4.5 Magnesium - 08/02/16 03:25 Magnesium 2.5 mg/dL 1.8-2.4 Lipase - 08/02/16 03:25 Lipase 30 U/L 8-78 Serum or plasma troponin i.cardiac measurement (mass/volume) - 08/02/16 03:25 Serum or plasma troponin i.cardiac measurement (mass/volume) < ng/ mL <0.30 Myoglobin, serum - 08/02/16 03:25 Myoglobin, serum 66.3 ng/mL 10.0-92.0 Serum or plasma troponin i.cardiac measurement (mass/volume) - 08/02/16 05:55 Serum or plasma troponin i.cardiac measurement (mass/volume) < ng/ mL <0.30 Complete blood count (CBC) with automated white blood cell (WBC) differential - 05/06/17 10:40 Blood leukocytes automated count (number/volume) 6.8 10*3/uL 4.3-11.0 Blood erythrocytes automated count (number/volume) 4.55 10*6/uL 4.35-5.85 Venous blood hemoglobin measurement (mass/volume) 13.5 g/dL 11.5-16.0 Blood hematocrit (volume fraction) 39 % 35-52 Automated erythrocyte mean corpuscular volume 85 [foz_us] 80-99 Automated erythrocyte mean corpuscular hemoglobin (mass per erythrocyte) 30 pg 25-34 Automated erythrocyte mean corpuscular hemoglobin concentration measurement ( mass/volume) 35 g/dL 32-36 Automated erythrocyte distribution width ratio 12.3 % 10.0-14.5 Automated blood platelet count (count/volume) 255 10*3/uL 130-400 Automated blood platelet mean volume measurement 9.7 [foz_us] 7.4-10.4 Automated blood neutrophils/100 leukocytes 50 % 42-75 Automated blood lymphocytes/100 leukocytes 40 % 12-44 Blood monocytes/100 leukocytes 9 % 0-12 Automated blood eosinophils/100 leukocytes 1 % 0-10 Automated blood basophils/100 leukocytes 0 % 0-10 Blood neutrophils automated count (number/volume) 3.4 10*3 1.8-7.8 Blood lymphocytes automated count (number/volume) 2.7 10*3 1.0-4.0 Blood monocytes automated count (number/volume) 0.6 10*3 0.0-1.0 Automated eosinophil count 0.1 10*3/uL 0.0-0.3 Automated blood basophil count (count/volume) 0.0 10*3/uL 0.0-0.1 Comprehensive metabolic panel - 05/06/17 10:40 Serum or plasma sodium measurement (moles/volume) 140 mmol/L 135-145 Serum or plasma potassium measurement (moles/volume) 3.8 mmol/L 3.6-5.0 Serum or plasma chloride measurement (moles/volume) 107 mmol/L 98-107 Carbon dioxide 22 mmol/L 21-32 Serum or plasma anion gap determination (moles/volume) 11 mmol/L 5-14 Serum or plasma urea nitrogen measurement (mass/volume) 16 mg/dL 7-18 Serum or plasma creatinine measurement (mass/volume) 0.86 mg/dL 0.60-1.30 Serum or plasma urea nitrogen/creatinine mass ratio 19 NRG Serum or plasma creatinine measurement with calculation of estimated glomerular filtration rate > NRG Serum or plasma glucose measurement (mass/volume) 113 mg/dL 70-105 Serum or plasma calcium measurement (mass/volume) 8.7 mg/dL 8.5-10.1 Serum or plasma total bilirubin measurement (mass/volume) 0.5 mg/dL 0.1-1.0 Serum or plasma alkaline phosphatase measurement (enzymatic activity/volume) 55 U/L 40-136 Serum or plasma aspartate aminotransferase measurement (enzymatic activity/ volume) 18 U/L 5-34 Serum or plasma alanine aminotransferase measurement (enzymatic activity/volume ) 16 U/L 0-55 Serum or plasma protein measurement (mass/volume) 6.7 g/dL 6.4-8.2 Serum or plasma albumin measurement (mass/volume) 4.0 g/dL 3.2-4.5 Magnesium - 05/06/17 10:40 Magnesium 1.8 mg/dL 1.8-2.4 Serum or plasma troponin i.cardiac measurement (mass/volume) - 05/06/17 10:40 Serum or plasma troponin i.cardiac measurement (mass/volume) < ng/ mL <0.30 Myoglobin, serum - 05/06/17 10:40 Myoglobin, serum 34.4 ng/mL 10.0-92.0 Lipase - 05/06/17 10:40 Lipase 31 U/L 8-78 PT panel in platelet poor plasma by coagulation assay - 05/06/17 10:40 Prothrombin time (PT) in platelet poor plasma by coagulation assay 12.6 s 12.2-14.7 INR in platelet poor plasma or blood by coagulation assay 0.9 0.8-1.4 Activated partial thromboplastin time (aPTT) in platelet poor plasma bycoagulation assay - 05/06/17 10:40 Activated partial thromboplastin time (aPTT) in platelet poor plasma bycoagulation assay 26 s 24-35 Encounters ACCT No. Visit Date/Time Discharge Status Pt. Type Provider Facility Loc./Unit Complaint [id number] 09/10/2016 07:38:00 09/10/2016 23:59:59 [facility] Outpatient JEANNA MCKEON DO [facility] RAD ABDOMINAL PAIN R10.84 [id number] 08/02/2016 03:04:00 08/02/2016 07:04:00 DIS Emergency TITUS NEVAREZ MD [facility] ER UPPER ABD PAIN,UPPER BACK PAIN [id number] 05/01/2016 08:29:00 05/27/2016 13:40:00 DIS Outpatient JEANNA MCKEON DO [facility] REHAB LEG AND HIP PAIN [id number] 01/31/2016 10:14:00 01/31/2016 23:59:59 CLS Outpatient JEANNA MCKEON DO [facility] RAD L ISCHIAL TUBEROSITY UPPER HAMSTRING [id number] 12/18/2015 10:12:00 12/18/2015 23:59:59 CLS Outpatient HARLEY PIERCE APRN [facility] CARD CHEST PAIN,DYSPNEA [id number] 12/11/2015 12:08:00 12/11/2015 23:59:59 CLS Outpatient HARLEY PIERCE Kelly YANG [facility] CARD CHEST PAIN,DYSPNEA, DIZZINESS [id number] 11/23/2014 16:16:00 11/23/2014 23:59:59 CLS Outpatient TITUS FAN DC [facility] RAD PAIN CERVICAL,UPPER BACK, LUMBALGIA W/ RT LEG [id number] 05/06/2017 10:29:00 ACT Emergency ARIEL BAIRD, KANE Cifuentes [facility] ER DIZZINESS,CP,DIAPHRAM PAIN,BACK PAIN [id number] 03/12/2012 08:06:00 Document Registration [id number] 03/11/2012 07:33:00 Document Registration
[2017-05-06] MEDS ORDERED: FAMOTIDINE 20 MG (PEPCID) TABLET PO STA (12:48)
[2017-05-06] MEDS ORDERED: LIDOCAINE 2% VISCOUS 15 ML UDC PO ONE (13:00)
[2017-05-06] MEDS ORDERED: ANTACID SUSP 30 ML UDC (MYLANTA) PO ONE (13:00)
--- NOTE | 2017-05-06 13:41 | Consultation-Cardiology ---
HPI-Cardiology Cardiology Consultation: Date of Consultation 05/06/17 Date of Admission Attending Physician Admitting Physician Darling Michaels DO Consulting Physician Sincere RIDDLE MD HPI: Time Seen by Provider: 12:40 Chief Complaint: Chest pain, dizziness This is a 61-year-old lady who has no significant past medical history. She was a previous smoker but quit 30 years ago. She presented with epigastric/ chest pain episode for 5 minutes. Intensity was moderate. No significant radiation. No associated symptoms. She also had mild dizziness. No exacerbating or relieving factors. No further chest pain. Review of Systems-Cardiology Review of Systems Constitutional: No As described under HPI, No no symptoms reported, No chills, No fever, lightheadedness, No malaise, No tiredness, No weight loss, No weight gain, No other Eyes: No As described under HPI, No no symptoms reported, No blindness, No blurred vision, No contact lenses, No drainage, No decreased acuity, No foreign body sensation, No glasses, No inflammation, No pain, No photophobia, No previous injury, No shadows, No tunnel vision, No other, No vision change Ears/Nose/Throat: No As described under HPI, No no symptoms reported, No chronic hearing loss, No epistaxis, No ear discharge, No ear pain, No loose teeth, No mouth pain, No mouth swelling, No nasal drainage, No nose pain, No recent hearing loss, No throat pain, No throat swelling, No ulcerations, No other Respiratory: No no symptoms reported, No As described under HPI, No cough, No orthopnea, No shortness of breath, No SOB with excertion, No SOB at rest, No stridor, No wheezing, No other Cardiovascular: chest pain Gastrointestinal: No no symptoms reported, No As described under HPI, No abdomen distended, No abdominal pain, No blood streaked bowels, No constipation , No diarrhea, No difficulty swallowing, No nausea, No poor appetite, No poor fluid intake, No rectal bleeding, No vomiting, No other, No nausea/vomiting/ diarrhea, No stool coloration changes Genitourinary: No no symptoms reported, No As described under HPI, No burning, No dysuria, No discharge, No frequency, No flank pain, No hematuria, No incontinence, No pain, No urgency, No other, No urine frequency changes, No urine coloration changes Musculoskeletal: No no symptoms reported, No As describe under HPI, No back pain, No gout, No joint pain, No joint swelling, No muscle pain, No muscle stiffness, No neck pain, No other Skin: No no symptoms reported, No As described under HPI, No change in color, No change in hair/nails, No dryness, No lesions, No lumps, No rash, No other, No skin related problems, No ulcerations, No rash on exposed areas, No ulcerations on exposed areas Psychiatric/Neurological: No no symptoms reported, No As described under HPI, No anxiety, No depression, No emotional problems, No headache, No numbness, No pre-existing deficit, No seizure, No tingling, No tremors, No weakness, No other , No focal weakness, No syncope Hematologic: No no symptoms reported, No As described under HPI, No anemia, No blood clots, No easy bleeding, No easy bruising, No swollen glands, No other, No bleeding abnormalities [id number] Hx Patient Social History Alcohol Use: Denies Use Recreational Drug Use: No Smoking Status: Never a Smoker Type Used: Cigarettes (crit 35 years ago) 2nd Hand Smoke Exposure: No Recent Foreign Travel: No Recent Infectious Disease Expo: No Past Medical History PMH As described under Assessment. Allergies and Home Medications Allergies Coded Allergies: No Known Drug Allergies (Unverified , 03/12/12) Home Medications No Active Prescriptions or Reported Meds Physical Exam-Cardiology Physical Exam Vital Signs/I&O Vital Sign - Last 12Hours 05/06/17 10:27 Temp 98.0 Pulse 78 Resp 18 B/P (MAP) 157/88 (111) Pulse Ox 99 Capillary Refill : Less Than 3 Seconds Constitutional: appears stated age, AAO x 3, No apparent distress, well- developed, well-nourished HEENT: PERRL, No discharge, hearing is well preserved, oral hygience is good, No ulceration, No xanthelasmas are seen Neck: No carotid bruit, carotid pulses are 2 + bilaterally Respiratory: chest is bilaterally symmetric, lungs clear to percussion, lungs clear to auscultation Cardiovascular: regular rate-rhythm, No irregularly irregular, No extra beats, No parasternal heave is noted, No JVD, No edema, No bradycardia, No tachycardia , No point of maximal impulse, No cardiac thrills are palpable, S1 and S2, No gallop/S3, No gallop/S4, No diastolic murmur, No systolic murmur, No friction rub, No click, No other Gastrointestinal: No tender, No soft, No round, No distended, No pulsatile mass , No organomegaly, No guarding, No rebound, No tenderness, No hernia, No mass, No audible bowel sounds, No abnormal bowel sounds, No abdominal bruits, No spleenomegaly, No other Rectal: deferred Extremities: No normal range of motion, No non-tender, No normal inspection, No pedal edema, No calf tenderness, No normal capillary refill, No pelvis stable , No calf tenderness, No inflammation, No pedal edema, No slow capillary refill , No swelling, No other, No abrasion, No clubbing, No cyanosis, No ecchymosis, No laceration, No no lower extremity edema bilateral, No significant edema, No tenderness, No wound Neurologic/Psychiatric: No clinical orthoptist II-XII nml as tested, No no motor/sensory deficits, alert, normal mood/affect, oriented x 3, No abnormal cerebellar tests , No abnormal clinical orthoptist II-XII, No abnormal gait, No aphasia, No EOM palsy, No facial droop, No motor weakness, No sensory deficit, No depressed affect, No disoriented x 3, No other, No grossly intact, No power is 5/5 both on sides Skin: No normal color, No warm/dry, No cyanosis, No cool, No diaphoresis, No damp, No ecchymosis, No jaundice, No mottled, No pallor, No rash, No tattoos/ piercings, No ulcerations, No rash on exposed areas, No ulcerations on exposed areas, No other Data Review Labs Laboratory Tests 05/06/17 10:40: White Blood Count 6.8, Red Blood Count 4.55, Hemoglobin 13.5, Hematocrit 39, Mean Corpuscular Volume 85, Mean Corpuscular Hemoglobin 30, Mean Corpuscular Hemoglobin Concent 35, Red Cell Distribution Width 12.3, Platelet Count 255, Mean Platelet Volume 9.7, Neutrophils (%) (Auto) 50, Lymphocytes (%) (Auto) 40, Monocytes (%) (Auto) 9, Eosinophils (%) (Auto) 1, Basophils (%) (Auto) 0, Neutrophils # (Auto) 3.4, Lymphocytes # (Auto) 2.7, Monocytes # (Auto) 0.6, Eosinophils # (Auto) 0.1, Basophils # (Auto) 0.0, Prothrombin Time 12.6, INR Comment 0.9, Activated Partial Thromboplast Time 26, Sodium Level 140, Potassium Level 3.8, Chloride Level 107, Carbon Dioxide Level 22, Anion Gap 11, Blood Urea Nitrogen 16, Creatinine 0.86, Estimat Glomerular Filtration Rate > 60 , BUN/Creatinine Ratio 19, Glucose Level 113H, Calcium Level 8.7, Magnesium Level 1.8, Total Bilirubin 0.5, Aspartate Amino Transf (AST/SGOT) 18, Alanine Aminotransferase (ALT/SGPT) 16, Alkaline Phosphatase 55, Myoglobin 34.4, Troponin I < 0.30, Total Protein 6.7, Albumin 4.0, Lipase 31 05/06/17 12:40: Troponin I < 0.30 ECG Impression ECG Initial ECG Rhythm: Normal Sinus Initial ECG Impression: Nonspecific Changes A/P-Cardiology Assessment/Admission Diagnosis Chest pain, dizziness Plan This is a 61-year-old lady with history of chest pain, dizziness. No significant past medical or cardiac history. EKG does not show any acute ST-T wave abnormalities. We will do ACS ruled out with serial troponin. If troponins are negative patient will follow with us in the office in the next 7- 10 days. We can schedule stress test and echocardiogram as an outpatient. She may require carotid ultrasound for dizziness and Holter monitor as an outpatient. She was advised to seek immediate medical attention if she continues to have chest pain. Thank you for your consultation. Please call me if you have any questions. Pb Riddle MD, FACP, FACC, FSCAI, FHRS, CCDS Interventional Cardiology Cardiac Electrophysiology Vascular Medicine and Endovascular Interventions Sincere RIDDLE MD May 06, 2017 13:41
[2017-05-06 13:51] VITALS: BP 125/90
== END 2017-05-06 13:51 | disposition home or self-care (01) ==
LOC: EDUNIT# 10:27 → ER 10:29
DX: R07.2 Precordial pain (principal); K21.9 Gastro-esophageal reflux disease without esophagitis; Z87.19 Personal history of other diseases of the digestive system; Z87.891 Personal history of nicotine dependence
CPT/HCPCS: 36415; 71046; 80053; 83690; 83735; 83874; 84484; 85025; 85610; 85730; 93005; 93041; 96360

== ENCOUNTER → 2017-05-15 | Outpatient (CLI) | payer OTHER | LOC: LAB 07:11 | PROVIDERS: ATTEND Family Medicine | DX: Z00.00 Encounter for general adult medical examination without abnormal findings (principal); E11.9 Type 2 diabetes mellitus without complications; R53.83 Other fatigue; E03.9 Hypothyroidism, unspecified; E55.9 Vitamin D deficiency, unspecified | CPT/HCPCS: 36415; 80061; 82306; 83036; 84443 ==

== ENCOUNTER → 2017-05-19 | Outpatient (CLI) | payer OTHER ==
[2017-05-19 12:42] VITALS: BP 112/72
--- NOTE | 2017-05-19 12:42 | Cardiology Stress Test Report ---
Stress Test Report Date of Procedure/Referring: Date of Procedure: May 19, 2017 PCP Sincere Riddle MD Admitting Physician Darling Michaels DO Indications: Chest pain Baseline Heart Rate: 79 Baseline Blood Pressure: Blood Pressure Systolic: 112 Blood Pressure Diastolic: 72 Baseline EKG: Baseline EKG: sinus rhythm. Summary: The patient was brought to the stress lab after informed consent was taken. Stress test was performed according to the standard [facility] protocol. Baseline EKG showed sinus rhythm at 79 bpm and blood pressure 112/72 mmHg. Patient exercised for 9 minutes and 27 seconds and achieved 10.9 METs. Maximum blood pressure was 157/60 mmHg. Maximum heart rate was 160 bpm which is 100 percent of maximum predicted heart rate response. Patient had very mild discomfort at peak exercise. No arrhythmias were noted. Nonspecific nondiagnostic ST depression was noted. Artifact was noted at peak exercise however there was no clear ST depressions. Conclusion: Exercise stress test is negative for ischemia. Artifact was noted during peak exercise. Good functional capacity. Normotensive response to exercise. Sincere RIDDLE MD May 19, 2017 12:42 pm
== END ==
LOC: CARD 11:00
PROVIDERS: ATTEND Internal Medicine Interventional Cardiology
DX: R07.9 Chest pain, unspecified (principal); R42 Dizziness and giddiness; R73.9 Hyperglycemia, unspecified; E78.5 Hyperlipidemia, unspecified; R55 Syncope and collapse
CPT/HCPCS: 93017

== ENCOUNTER 2017-05-26 07:25 | Outpatient (RCR) | payer OTHER ==
[2017-09-04] MEDS ORDERED: ACHD5005 PO (11:25)
== END 2017-08-24 | disposition home or self-care (01) ==
LOC: CARD 07:25
PROVIDERS: ATTEND Internal Medicine Interventional Cardiology
DX: R07.9 Chest pain, unspecified (principal); R42 Dizziness and giddiness; R55 Syncope and collapse; R73.9 Hyperglycemia, unspecified; E78.5 Hyperlipidemia, unspecified
CPT/HCPCS: 93225; 93226

== ENCOUNTER → 2017-05-26 | Outpatient (CLI) | payer OTHER ==
--- NOTE | 2017-05-26 19:17 | Diagnostic Imaging Report ---
INDICATION: Routine screening. The current study was also evaluated with a Computer Aided Detection (CAD) system. Comparison is made with the prior mammogram from 07/04/2005. FINDINGS: Both breasts demonstrate moderate parenchymal heterogeneity and increased density, limiting the sensitivity of mammography. No discrete mass or malignant-appearing microcalcifications are seen. The axillae are unremarkable. IMPRESSION: No mammographic features suspicious for malignancy are identified. ACR BI-RADS Category 1: Negative. Result letter will be mailed to the patient. Note: At least 10% of breast cancer is not imaged by mammography. Dictated by: Dictated on workstation # [id number]
== END ==
LOC: RAD 07:23
PROVIDERS: ATTEND Family Medicine
DX: Z12.31 Encounter for screening mammogram for malignant neoplasm of breast (principal)
CPT/HCPCS: 77067

== ENCOUNTER → 2017-06-04 | Outpatient (CLI) | payer OTHER | LOC: CARD 10:56 | PROVIDERS: ATTEND Internal Medicine Interventional Cardiology | DX: R07.9 Chest pain, unspecified (principal); R42 Dizziness and giddiness; R73.9 Hyperglycemia, unspecified; E78.5 Hyperlipidemia, unspecified; R55 Syncope and collapse | CPT/HCPCS: 93306 ==

== ENCOUNTER 2017-08-31 05:37 | Outpatient (CLI) | payer OTHER ==
[~2017-08-31] VITALS: Ht 157.5 cm; Wt 61.2 kg
== END 2017-08-31 13:25 ==
LOC: PREOP 05:37
PROVIDERS: ATTEND Surgery
DX: Z01.818 Encounter for other preprocedural examination (principal); K82.4 Cholesterolosis of gallbladder

== ENCOUNTER 2017-09-04 08:16 | Day surgery (SDC) | payer OTHER ==
[~2017-09-04] VITALS: Ht 157.5 cm; Wt 61.2 kg
[2017-09-04 09:10] VITALS: BP 114/80
[2017-09-04] MEDS: LACTATED RINGERS 1,000 ML IV PRN ×2 (09:25→11:02)
[2017-09-04] MEDS ORDERED: FAMOTIDINE 20MG/2ML IV (PEPCID) IV ONE (09:30)
[2017-09-04] MEDS ORDERED: metroNIDAZOLE 500MG/100ML IVPB 100 ML IV ONE (09:30)
[2017-09-04] MEDS ORDERED: ceFAZolin INJECTION 1,000 MG in NS (IVPB) 50 ML IV ONE (09:30)
--- NOTE | 2017-09-04 09:34 | Progress Note-Pre Operative ---
Pre-Operative Progress Note H&P Reviewed The H&P was reviewed, patient examined and no changes noted. Date Seen by Provider: August 06, 2017 Time Seen by Provider: 14:00 Date H&P Reviewed: Sep 04, 2017 Time H&P Reviewed: 09:34 Pre-Operative Diagnosis: Gallbladder polyp WOODY BUNCH MD Sep 04, 2017 9:34 am
[2017-09-04] MEDS ORDERED: metroNIDAZOLE 500MG/100ML IVPB 100 ML ONE (09:36)
[2017-09-04] MEDS ORDERED: ceFAZolin 1,000 MG (ANCEF) VIAL ONE (09:37)
[2017-09-04] MEDS ORDERED: NS (IVPB) 50 ML ONE (09:37)
[2017-09-04] MEDS ORDERED: BUP/EPI 0.5% 1:200,000 (SENSORCAINE) 30 ML VIAL ONE (09:48)
[2017-09-04] MEDS ORDERED: LIDOCAINE PF 2% 5 ML (XYLOCAINE) VIAL ONE (09:49)
[2017-09-04] MEDS ORDERED: ONDANSETRON 4 MG/2 ML (SDV) Z0FRAN ONE (09:49)
[2017-09-04] MEDS ORDERED: proPOfol 200 MG/20 ML (DIPRIVAN) VIAL IV ONE (09:49)
[2017-09-04] MEDS ORDERED: ROCURONIUM 10 MG/ML 5 ML SYRINGE IV ONE (09:49)
[2017-09-04] MEDS ORDERED: MIDAZOLAM 2 MG/2 ML (VERSED) VIAL ONE (09:50)
[2017-09-04] MEDS ORDERED: fentaNYL INJECTION 100 MCG/2 ML AMP ONE ×2 (09:50→11:45)
[2017-09-04] MEDS ORDERED: DEXAMETHASONE 10 MG/ML (DECADRON) 1 ML VIAL ONE (09:52)
[2017-09-04] MEDS ORDERED: SEVOFLURANE (ULTANE) 15 ML INHAL SOLN ONE ×4 (09:52→11:02)
[2017-09-04] MEDS ORDERED: GLYCOPYRROLATE 0.2 MG/ML (ROBINUL) 2 ML VIAL ONE (11:02)
[2017-09-04] MEDS ORDERED: NEOSTIGMINE 1 MG/ML 5 ML SYRINGE ONE (11:02)
[2017-09-04] MEDS ORDERED: ATROPINE 0.4 MG/ML 20 ML VIAL ONE (11:02)
--- NOTE | 2017-09-04 11:24 | Operative Report ---
Operative Report Date of Procedure/Surgery Sep 04, 2017 Surgeon (s) WOODY BUNCH MD Surveillance Agent (s): N/A Post-Operative Diagnosis Same Procedure Performed Robotic-assisted cholecystectomy Description of Procedure Anesthesia Type: General Estimated blood loss (mL): Minimal Specimen(s) collected/removed Gallbladder Description of the Procedure Indication for the procedure: This lady presented with biliary colic due to a small polyp/non-mobile stone within the gallbladder. Having excluded other abnormalities, it was felt reasonable to offer cholecystectomy. Informed consent was obtained after reviewing the operative details and complications of wound infection, bile leak and the potential for persistent symptoms. Description of the procedure: She was placed supine on the operative table and general anesthesia induced. A gram of Ancef and 500 mg of Flagyl were administered intravenously as prophylaxis against wound infection. Sequential compression devices were placed around her legs to minimize the risk of venous thrombosis. Abdomen was prepared and draped in the usual sterile manner. Pneumoperitoneum was established using a Veress needle introduced over the supra-umbilical region. Intra-abdominal pressure was maintained at 15 mmHg, using carbon dioxide insufflation. A 12 mm trocar was placed and anatomy visualized using the high definition, 3-dimensional laparoscope associated with da Devaughn system. Under direct view, I placed an 8 mm trocar over each side of the abdomen, followed by a 5 mm trocar over the left subcostal region. The patient was then turned into reverse Trendelenburg position with the right side tilted up. The robotic system was then docked in place. The fundus of the gallbladder was retracted cephalad and the infundibulum grasped with Cadiere forceps. Peritoneum overlying Calot's triangle was incised using the hook cautery, delineating the cystic duct and artery. Both were divided between locking clips. Cholecystectomy was then completed using hook artery. The gallbladder was then placed in an Endo Catch bag and removed via the supraumbilical trocar site. The fascia over this incision was closed using #1 Vicryl using the Jerardo Lewis device, under direct view. Skin incisions were closed using 4-0 Vicryl, in a subcuticular fashion. 0.5 percent Marcaine with epinephrine was infiltrated along the incisions, both preemptively and at the conclusion of the operation. She tolerated the procedure well, was extubated in the operating room and taken to the recovery room in a stable condition. Findings of the Procedure see op report Allergies and Home Medications Allergies Coded Allergies: No Known Drug Allergies (Unverified , 03/12/12) Home Medications No Active Prescriptions or Reported Meds Patient Home Medication List Home Medication List Reviewed: Yes WOODY BUNCH MD Sep 04, 2017 11:24 am
[2017-09-04] MEDS ORDERED: ACHD5005 PO (11:25)
--- NOTE | 2017-09-04 11:26 | Discharge Inst-Simple/Standard ---
Discharge Inst-Standard Discharge Medications New, Converted or Re-Newed RX: RX on Chart Patient Instructions/Follow Up Plan of Care/Instructions/FU: Dressings off in 48 hours. Incentive spirometry. Follow-up in 3 weeks. Activity as Tolerated: Yes Discharge Diet: No Restrictions WOODY BUNCH MD Sep 04, 2017 11:26 am
[2017-09-04] MEDS ORDERED: morphine INJ 10 MG/ML 1ML (SYR OR VIAL) ONE (11:37)
[2017-09-04] MEDS ORDERED: MEPERIDINE (DEMEROL) INJ 50 MG/ML IVP PRN (11:45)
[2017-09-04] MEDS: fentaNYL INJECTION 100 MCG/2 ML AMP IVP PRN ×2 (11:45→11:55)
[2017-09-04] MEDS ORDERED: ONDANSETRON 4 MG/2 ML (SDV) Z0FRAN IVP PRN (11:45)
[2017-09-04 12:40] VITALS: BP 90/59
[2017-09-04 13:10] VITALS: BP 98/61
[2017-09-04] MEDS ORDERED: ONDANSETRON 4 MG/2 ML (SDV) Z0FRAN IVP ONE (13:15)
--- NOTE | 2017-09-04 13:35 | Anesthesia-General Post-Op ---
General Patient Condition Mental Status/LOC: Same as Preop Cardiovascular: Satisfactory Nausea/Vomiting: Present Respiratory: Satisfactory Pain: Controlled Complications: Absent Post Op Complications Complications Pt c/o nausea once in secondary. Another 4 mg Zofran ordered. Follow Up Care/Instructions Patient Instructions None needed. Anesthesia/Patient Condition Patient Condition Patient is doing well, no complaints, stable vital signs, no apparent adverse anesthesia problems. No complications reported per nursing. D/C home per [facility] – [place] Criteria: Yes ANITA FOOTE CRNA Sep 04, 2017 13:35
[2017-09-04 13:40] VITALS: BP 101/60
[2017-09-04 15:50] VITALS: BP 101/60
== END 2017-09-04 15:50 | disposition home or self-care (01) ==
LOC: SDC 08:16
PROVIDERS: ATTEND Surgery
DX: K81.1 Chronic cholecystitis (principal)
CPT/HCPCS: 87081; 88304; 94664

== ENCOUNTER → 2018-11-24 | Outpatient (CLI) | payer OTHER ==
[~2018-11-24] MED LIST changes: +ACHD5005 PO
--- NOTE | 2018-11-24 14:36 | Diagnostic Imaging Report ---
INDICATION: Pain status post injury. COMPARISON: None. FINDINGS: A single AP view of the pelvis was performed. There is no radiographic evidence of acute fracture or dislocation. Pubic symphysis is within normal limits. SI joints are symmetric. Proximal femurs are intact, bilaterally. The femoro-acetabular joint spaces appear maintained on this single frontal view. Remainder of the bony pelvis is intact as well. No unexpected radiopaque foreign bodies are seen. Included small bowel loops are nondistended. IMPRESSION: 1. No radiographic evidence of acute fracture or dislocation of the bony pelvis. Dictated by: Dictated on workstation # [id number]
== END ==
LOC: RAD 13:46
PROVIDERS: ATTEND Nurse Practitioner Family
DX: R10.2 Pelvic and perineal pain (principal); Z87.828 Personal history of other (healed) physical injury and trauma
CPT/HCPCS: 72170

== ENCOUNTER → 2019-05-05 | Outpatient (CLI) | payer OTHER ==
--- NOTE | 2019-05-05 13:38 | Diagnostic Imaging Report ---
INDICATION: Routine screening. COMPARISON is made with prior mammogram from 05/26/2017. 2-D and 3-D bilateral screening mammography was performed with CAD. Both breasts are heterogeneously dense, limiting the sensitivity of mammography. The parenchymal pattern is stable. No mass or malignant appearing microcalcifications are seen. The axillae are unremarkable. IMPRESSION: BI-RADS Category 1 No mammographic features suspicious for malignancy are identified. ACR BI-RADS Category 1: Negative. Result letter will be mailed to the patient. Note: At least 10% of breast cancer is not imaged by mammography. Dictated by: Dictated on workstation # [id number]
== END ==
LOC: RAD 10:20
PROVIDERS: ATTEND Family Medicine
DX: Z12.31 Encounter for screening mammogram for malignant neoplasm of breast (principal)
CPT/HCPCS: 77067

== ENCOUNTER → 2021-09-11 | Outpatient (CLI) | payer BC, OTHER ==
--- NOTE | 2021-09-11 10:55 | Diagnostic Imaging Report ---
PROCEDURE: Pelvic comp/transvaginal sonogram. TECHNIQUE: Complete transabdominal and transvaginal pelvic ultrasound was performed. In addition, limited pelvic Doppler was performed. INDICATION: Pelvic pain. Uterus is anteverted measuring 5.6 x 2.7 x 4.0 cm. Endometrium is thin at 1 to 2 mm. There is a myometrial calcification in the right uterine body approximately 6 mm in size. No other myometrial masses are seen. Right ovary measures 1.9 x 1.1 x 2.0 cm and the left ovary measures 1.5 x 0.8 x 1.0 cm. There is blood flow to both ovaries. No adnexal mass or free fluid is detected. IMPRESSION: Essentially unremarkable transabdominal and transvaginal pelvic ultrasound. Dictated by: Dictated on workstation # [id number]
--- NOTE | 2021-09-11 10:56 | Diagnostic Imaging Report ---
INDICATION: Abdominal pain and pelvic pain. PROCEDURE: Ultrasound abdomen complete. TECHNIQUE: Multiple real-time grayscale images were obtained of the abdomen in various projections. Liver is normal in size at 17 cm. The portal vein is patent and shows normal direction of flow. No discrete liver mass is detected. The gallbladder surgically absent. The visualized pancreas is unremarkable. Spleen measures 8.8 cm. Aorta is nonaneurysmal. IVC is patent. Right kidney is 10.2 cm in length and the left kidney is 8.9 cm in length. No calculi or hydronephrosis is detected. There is no ascites. IMPRESSION: 1. Status post cholecystectomy. 2. No significant abnormality in the abdomen is identified. Dictated by: Dictated on workstation # [id number]
== END ==
LOC: RAD 09:00
PROVIDERS: ATTEND Family Medicine
DX: R10.9 Unspecified abdominal pain (principal); R10.2 Pelvic and perineal pain
CPT/HCPCS: 76700; 76830; 76856

== ENCOUNTER → 2021-10-16 | Outpatient (CLI) | payer BC ==
--- NOTE | 2021-10-17 09:54 | Diagnostic Imaging Report ---
Indication: Routine screening. Comparison is made with prior mammograms from 05/05/2019 and 05/26/2017. 2-D and 3-D bilateral screening mammography was performed with CAD. Both breasts are heterogeneously dense, limiting the sensitivity of mammography. No mass or malignant-appearing microcalcifications are seen. Axillae are unremarkable. IMPRESSION: BI-RADS Category 1 No mammographic features suspicious for malignancy are identified. ACR BI-RADS Category 1: Negative. Result letter will be mailed to the patient. Note: At least 10% of breast cancer is not imaged by mammography. Dictated by: Dictated on workstation # [id number]
== END ==
LOC: RAD 15:15
PROVIDERS: ATTEND Family Medicine
DX: Z12.31 Encounter for screening mammogram for malignant neoplasm of breast (principal)
CPT/HCPCS: 77063; 77067